=== PATIENT | female | born 1965 | race Two or more races ===

== ENCOUNTER 2020-06-08 20:14 | Emergency (ER) | payer BC ==
[~2020-06-08] VITALS: Ht 160 cm; Wt 62.0 kg
[2020-06-08 23:59] VITALS: BP 90/52
== END 2020-06-09 00:06 | disposition home or self-care (01) ==
LOC: ER 20:14
DX: R55 Syncope and collapse (principal); F10.20 Alcohol dependence, uncomplicated; F31.9 Bipolar disorder, unspecified; J45.909 Unspecified asthma, uncomplicated; Y90.9 Presence of alcohol in blood, level not specified
CPT/HCPCS: 82962; 93005; 99283